=== PATIENT | male | born 1960 | race American Indian/Alaskan Native ===

== ENCOUNTER 2016-11-29 19:02 | Emergency (ER) | payer BC ==
[2016-11-29 19:36] VITALS: BMI 29.2
[2016-11-29 19:39] VITALS: BP 154/93; PULSE 77; RESP 18; TEMP 98.7; O2SAT 99
--- NOTE | 2016-11-29 20:10 | ED PDOC ---
Arrival/HPI - General Chief Complaint: High Blood Pressure Time Seen by Provider: 11/29/16 19:28 Historian: Patient - History of Present Illness Narrative History of Present Illness (Text): 11/29/16 19:35 Merlin Alcantara is a 56 year old male, whose past medical history includes hypertension and hypercholestremia, presents to the Emergency department complaining of feeling dizziness for the past two days. Patient reports having a headache and has felt faint. Patient notes that he recently had his hypertension medication Yanet increase from 5mg to 10mg a day. 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 Patient denies chest pain, shortness of breath, nausea, vomiting, or other complaints. Time/Duration: < week (2 days) Symptom Onset: Sudden Symptom Course: Unchanged Modifying Factors (Text): None Associated Symptoms (Text): headache and feels faint Past Medical History - Provider Review Nursing Documentation Reviewed: Yes - Cardiac Hx Hypertension: Yes - Pulmonary Hx Respiratory Disorders: No - Neurological Hx Neurological Disorder: No - HEENT Hx HEENT Disorder: No - Renal Hx Renal Disorder: No - Endocrine/Metabolic Hx Endocrine Disorders: No - Hematological/Oncological Hx Blood Disorders: No - Integumentary Hx Dermatological Disorder: No - Musculoskeletal/Rheumatological Other/Comment: PAD on right leg. - Gastrointestinal Hx Gastrointestinal Disorders: No - Genitourinary/Gynecological Hx Genitourinary Disorders: No - Psychiatric Hx Psychophysiologic Disorder: No Hx Substance Use: No - Surgical History Other/Comment: right knee repair 20 yrs with screws - Anesthesia Hx Anesthesia: Yes Hx Anesthesia Reactions: No Hx Malignant Hyperthermia: No Family/Social History - Physician Review Nursing Documentation Reviewed: Yes Family/Social History: Unknown Family HX Smoking Status: Never Smoked Hx Alcohol Use: No Hx Substance Use: No Allergies/Home Meds Allergies/Adverse Reactions: Allergies No Known Allergies Allergy (Verified 12/13/13 14:48) Home Medications: Home Meds Medication Instructions Recorded Confirmed Olmesartan Medoxomil [Benicar] 40 mg PO DAILY 12/13/13 12/17/13 Simvastatin 10 mg PO DAILY 12/13/13 12/17/13 Aspirin 81 mg PO DAILY 12/17/13 12/17/13 Aspirin [Ecotrin] 81 mg PO DAILY 05/29/15 05/29/15 Cilostazol [Pletal] 100 mg PO BID 05/29/15 05/29/15 Olmesartan Medoxomil [Benicar] 40 mg PO DAILY 05/29/15 05/29/15 Simvastatin [Simvastatin] 10 mg PO DAILY 05/29/15 05/29/15 Review of Systems - Physician Review All systems were reviewed & negative as marked: Yes - Review of Systems Constitutional: Fatigue. absent: Fevers Respiratory: absent: SOB Cardiovascular: absent: Chest Pain Neurological: Headache, Dizziness Physical Exam Vital Signs Temp Pulse Resp BP Pulse Ox 11/29/16 19:36 98.7 F 77 18 154/93 H 99 Temperature: Afebrile Blood Pressure: Hypertensive Pulse: Regular Respiratory Rate: Normal Appearance: Positive for: Well-Appearing, Non-Toxic, Comfortable Pain Distress: None Mental Status: Positive for: Alert and Oriented X 3 - Systems Exam Head: Present: Atraumatic, Normocephalic Pupils: Present: PERRL Extroacular Muscles: Present: EOMI Conjunctiva: Present: Normal Mouth: Present: Moist Mucous Membranes Neck: Present: Normal Range of Motion Respiratory/Chest: Present: Clear to Auscultation, Good Air Exchange. No: Respiratory Distress, Accessory Muscle Use Cardiovascular: Present: Regular Rate and Rhythm, Normal S1, S2. No: Murmurs Abdomen: Present: Normal Bowel Sounds. No: Tenderness, Distention, Peritoneal Signs Back: Present: Normal Inspection Upper Extremity: Present: Normal Inspection. No: Cyanosis, Edema Lower Extremity: Present: Normal Inspection. No: Edema Neurological: Present: GCS=15, CN II-XII Intact, Speech Normal Skin: Present: Warm, Dry, Normal Color. No: Rashes Psychiatric: Present: Alert, Oriented x 3, Normal Insight, Normal Concentration Medical Decision Making ED Course and Treatment: 11/29/16 19:30 Impression: 56 year old male with dizziness and headache. Plan: -- EKG -- Chest X-ray -- CT Head without contrast -- Labs -- Reassess and disposition Progress Notes: 11/29/16 21:55 Chest X-ray interpreted by me: No acute process. 11/29/16 22:[address] Oates who is aware and agrees with the plan to observe patient at telemetry for near syncope. Accepts patient under his service with Dr. Mcpherson on neuro consult and Dr. Myers on cardiology consult. 11/29/16 22:13 Patient was offered admission to the hospital, but wants to sign out against medical advice. I strongly advised him to stay in the hospital, and informed him of the risks including possible cardiac event, neurological event and even . States he understands the risks of leaving and is adamant in his decision. Leaving Against Medical Advice (AMA): The patient is choosing to leave against medical advice. I have personally explained to the patient that choosing to do so may result in permanent bodily harm or . I have discussed at great length that without further evaluation and monitoring there may be unforeseen circumstances and/or deterioration causing permanent bodily harm or as a result of their choice. The patient is alert, oriented, and shows the mental capacity to make clear decisions regarding the patients health care at this time. The patient continues to wish to leave against medical advice. The patient has been advised that they should return to the emergency room immediately if they change their mind at any time, or if their condition begins to change or worsen in any way. CT Head results reviewed: Dictated and Authenticated by: Angie Jean-Baptiste MD FINDINGS: BRAIN: Diffuse, mild, age-related cortical atrophy and ventriculomegaly. No significant acute abnormality identified. No acute hemorrhage seen within the brain. No acute extra-axial fluid collections visualized. No evidence of significant mass effect within the brain. VENTRICLES: See above. BONES/JOINTS: No acute fractures or other acute bony abnormality noted. SOFT TISSUES: No acute abnormality of the visualized soft tissues is seen. SINUSES: Visualized paranasal sinuses appear clear. MASTOID AIR CELLS: Mastoid air cells appear clear. IMPRESSION: - No acute findings seen within the brain. - See above for remaining findings. - Lab Interpretations Lab Results: 11/29/16 20:20 11/29/16 20:20 Lab Results 11/29/16 20:20: WBC 4.1 L, RBC 4.66, Hgb 14.0, Hct 39.5 L, MCV 84.8, MCH 30.0, MCHC 35.4, RDW 13.1, Plt Count 139, MPV 10.1 11/29/16 20:20: Sodium 139, Potassium 3.8, Chloride 103, Carbon Dioxide 26, Anion Gap 14, BUN 23 H, Creatinine 1.1, Est GFR ( Amer) > 60, Est GFR ( Non-Af Amer) > 60, Random Glucose 103, Calcium 8.8, Total Bilirubin 0.5, AST 30 , ALT 33, Alkaline Phosphatase 70, Lactate Dehydrogenase 606, Total Creatine Kinase 216, Troponin I < 0.01, Total Protein 7.1, Albumin 3.9, Globulin 3.2, Albumin/Globulin Ratio 1.2 11/29/16 20:20: PT 10.7, INR 0.99, APTT 23.6 L I have reviewed the lab results: Yes - RAD Interpretation Radiology Orders: 11/29/16 19:49 HEAD W/O CONTRAST [CT] Stat 11/29/16 19:55 CHEST PORTABLE [RAD] Stat 11/29/16 22:03 BRAIN WITH CONTRAST [MRI] Urgent MRA HEAD WITHOUT CONTRAST [MRI] Urgent - EKG Interpretation EKG Interpretation (Text): 11/29/16 21:22 EKG- NSR@68,1st degree AV block,LAD,Incomplete RBBB,Inf.,ant.infarct Interpreted by ED Physician: Yes Type: 12 lead EKG - Medication Orders Current Medication Orders: Discontinued Medications Aspirin (Aspirin Chewable) 81 mg PO DAILY [facility] Atorvastatin Calcium (Lipitor) 10 mg PO DIN [facility] Cilostazol (Pletal) 100 mg PO BID [facility] Cyclobenzaprine HCl (Flexeril) 5 mg PO TID PRN PRN Reason: Muscle spasm Enoxaparin Sodium (Lovenox) 40 mg SC DAILY [facility] PRN Reason: Protocol Losartan Potassium (Cozaar) 100 mg PO DAILY [facility] Meclizine HCl (Antivert) 25 mg PO TID [facility] Pantoprazole Sodium (Protonix Ec Tab) 40 mg PO 0600,1600 [facility] - Scribe Statement The provider has reviewed the documentation as recorded by the Scribe 11/29/2016 Gaby Codydua Provider Scribe Attestation: All medical record entries made by the Scribe were at my direction and personally dictated by me. I have reviewed the chart and agree that the record accurately reflects my personal performance of the history, physical exam, medical decision making, and the department course for this patient. I have also personally directed, reviewed, and agree with the discharge instructions and disposition. Disposition/Present on Arrival - Present on Arrival Any Indicators Present on Arrival: No History of DVT/PE: No History of Uncontrolled Diabetes: No Urinary Catheter: No History of Decub. Ulcer: No History Surgical Site Infection Following: None - Disposition Have Diagnosis and Disposition been Completed?: Yes Diagnosis: Near syncope Disposition: HOSPITALIZED Disposition Time: 22:02 Condition: STABLE
[2016-11-29 20:39] LABS: HEMATOCRIT 39.5 % (42.0-52.0); MEAN CELL VOLUME 84.8 fL (80.0-105.0); MEAN CORPUSCULAR HGB CONC 35.4 g/dl (31.0-37.0); MEAN PLATELET VOLUME 10.1 fl (7.0-11.0); RED CELL DISTRIBUTION WIDTH 13.1 % (11.5-14.5); WHITE BLOOD COUNT 4.1 10^3/ul (4.5-11.0)
[2016-11-29 20:47] LABS: INR 0.99 (0.93-1.08); PARTIAL THROMBOPLASTIN TIME 23.6 Seconds (23.7-30.8)
[2016-11-29 20:48] LABS: ALB/GLOB RATIO 1.2 (1.1-1.8); ALKALINE PHOSPHATASE 70 U/L (38-133); ALT/SGPT 33 U/L (7-56); AST/SGOT 30 U/L (15-59); BILIRUBIN,TOTAL 0.5 mg/dL (0.2-1.3); BLOOD UREA NITROGEN 23 mg/dL (7-21); CALCIUM 8.8 mg/dL (8.4-10.5); CARBON DIOXIDE 26 mmol/L (21-33); GFR AFRICAN-AMERICAN > 60; GLUCOSE,RANDOM 103 mg/dL (70-110); SODIUM 139 mmol/L (132-148); TOTAL PROTEIN 7.1 g/dL (5.8-8.3)
[2016-11-29 20:51] LABS: CHLORIDE 103 mmol/L (98-107); POTASSIUM 3.8 mmol/L (3.6-5.0)
[2016-11-29 21:04] LABS: TROPONIN I < 0.01 ng/mL
[2016-11-29] MEDS ORDERED: Cilostazol 100 mg Tab UD PO SCH (22:00)
--- NOTE | 2016-11-29 22:17 | CT ---
EXAM: CT Head Without Intravenous Contrast CLINICAL HISTORY: 56 years old, male; Pain; Headache; Headache not specified TECHNIQUE: Axial computed tomography images of the head/brain without intravenous contrast. This CT exam was performed using one or more of the following dose reduction techniques: automated exposure control, adjustment of the mA and/or kV according to patient size, and/or use of iterative reconstruction technique. EXAM DATE/TIME: 11/29/2016 7:49 PM COMPARISON: No relevant prior studies available. FINDINGS: BRAIN: Diffuse, mild, age-related cortical atrophy and ventriculomegaly. No significant acute abnormality identified. No acute hemorrhage seen within the brain. No acute extra-axial fluid collections visualized. No evidence of significant mass effect within the brain. VENTRICLES: See above. BONES/JOINTS: No acute fractures or other acute bony abnormality noted. SOFT TISSUES: No acute abnormality of the visualized soft tissues is seen. SINUSES: Visualized paranasal sinuses appear clear. MASTOID AIR CELLS: Mastoid air cells appear clear. IMPRESSION: - No acute findings seen within the brain. - See above for remaining findings.
[2016-11-29] MEDS ORDERED: Enoxaparin 40 mg Syringe SC SCH (23:00)
[2016-11-30] MEDS ORDERED: Pantoprazole 40 mg EC Tab PO SCH (06:00)
--- NOTE | 2016-11-30 07:45 | RAD ---
HISTORY: dizzy COMPARISON: No prior. FINDINGS: LUNGS: No active pulmonary disease. PLEURA: No significant pleural effusion identified, no pneumothorax apparent. CARDIOVASCULAR: Normal. OSSEOUS STRUCTURES: No significant abnormalities. VISUALIZED UPPER ABDOMEN: Normal. OTHER FINDINGS: None. IMPRESSION: No acute cardiopulmonary disease identified at this time.
--- NOTE | 2016-11-30 10:01 | CARD ---
APPROVED REPORT EKG Measurement Heart [id number] <Conclusion> Sinus rhythm with 1st degree AV block Left axis deviation Incomplete right bundle branch block Inferior infarct, age undetermined Anterior infarct, age undetermined NSSTW changes
== END 2016-11-29 22:33 | disposition short-term general hospital (02) ==
LOC: ED 19:02 → UNDOADMOB 22:02 → ERH 22:02
DX: R55 Syncope and collapse (principal); I10 Essential (primary) hypertension; E78.00 Pure hypercholesterolemia, unspecified